=== PATIENT | female | born 1970 | race Caucasian/White ===

== ENCOUNTER → 2016-05-29 16:16 | Outpatient (CLI) | payer MEDICAID | END | disposition home or self-care (01) | LOC: D.MRI 16:16 | DX: S83.221A Peripheral tear of medial meniscus, current injury, right knee, initial encounter (principal) ==

== ENCOUNTER 2016-06-14 06:15 | Day surgery (SDC) | payer MEDICAID ==
[2016-06-13 12:30] LABS: HEMATOCRIT 40.9 % (36.0-48.0); HEMOGLOBIN 13.5 g/dL (12-16); MCH 30.2 pg (26.0-34.0); MCV 91.5 fL (80.0-100.0); MEAN PLATELET VOLUME 11.7 fL (7.4-10.4); RBC 4.47 10x6/uL (4.00-5.40); RDW 12.7 % (11.5-14.5); WBC 8.3 10x3/uL (4.8-10.8)
[2016-06-13 12:42] LABS: ANION GAP 13.5 mmol/L (8-16); CALCIUM 8.9 mg/dL (8.5-10.1); CARBON DIOXIDE 25.9 mmol/L (21.0-32.0); POTASSIUM - SERUM 4.4 mmol/L (3.5-5.1)
[~2016-06-14] VITALS: Ht 172.7 cm; Wt 102.1 kg
[~2016-06-14 06:15] MED LIST: AMBIEN10 MG PO; GLUCOTROL ER2.5 MG PO; XANAX0.5 MG PO
[2016-06-14 09:39] VITALS: BP 133/86; Ht 172.7 cm; Wt 102.1 kg
[2016-06-14] MEDS ORDERED: HYDROCODONE-APA1 TAB PO (13:37)
--- NOTE | 2016-06-14 14:48 | NUR ---
1440- PT BACK TO ROOM. SUPINE WITH HOB ELEVATED. EATING ICE CHIPS. RESPONDING TO VERBAL STIMULI. PAIN /, WILL OFFER FULL LIQUIDS THEN PRESCRIBED PAIN MEDICATION. S/P IV MEDICATIONS FROM RECOVERY. VSS. WILL MONITOR. AT BEDSIDE.
--- NOTE | 2016-06-14 17:07 | NUR ---
1510- FULL LIQUIDS TOLERATED 1525- PAIN AT 8/10, MEDICATION ADMINISTERED 1540- IV D/C'D, PT TOLERATED. CATHETER INTACT 1555- DISCHARGE INSTRUCTIONS COMPLETED, PT VERBALIZES UNDERSTANDING. PAPERWORK SIGNED. 1610- PT DISCHARGED VIA WHEELCHAIR WITH AND SON.
--- NOTE | 2016-06-15 11:39 | OP ---
PATIENT NAME: CORTEZ JHA MEDICAL RECORD: [id number] :66 LOCATION:[facility] ADMISSION DATE: SURGEON: KEV VALENTIN MD DATE OF OPERATION: 06/14/2016 DATE OF OPERATION: 06/14/2016 PREOPERATIVE DIAGNOSIS: Patellofemoral syndrome of the right knee. 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 PROCEDURES: 1. Right knee arthroscopy with arthroscopic partial medial meniscectomy. 2. Abrasion chondroplasty to the medial femoral condyle. 3. Arthroscopic lateral release. 4. Autologous conditioned plasma -- PRP injection. SURGEON: Kev Valentin MD ANESTHESIA: General. INTRAOPERATIVE COMPLICATIONS: None. SUMMARY OF PATHOLOGIC FINDINGS: Consistent with preoperative diagnosis, the patient had chondromalacia of lateral facet of patella, very tight lateral retinaculum and not seen on the MRI, the patient had a peripheral tear of the medial meniscus. OPERATIVE SUMMARY IN DETAIL: After obtaining the appropriate preoperative orthopedic surgery consent, as well as anesthetic consultation, evaluation and clearance, the patient was brought to the operating room and placed on the operating table in supine position. After general laryngeal mask was administered, tourniquet was placed about the proximal aspect of the right lower extremity. Right lower extremity was then prepped and draped in routine sterile fashion. The leg was elevated and exsanguinated, tourniquet inflated to 350 mmHg. Routine inferolateral portal was established followed by superomedial portal and inferomedial portal. Diagnostic arthroscopy did reveal the above findings. Combination of meniscotome as well as the arthroscopic resector was utilized to debride the meniscus back to stable meniscal elements. Attention was then turned to the lateral release. The scope was switched to the medial side for direct visualization of the lateral retinaculum. Lateral retinaculum was then released just below the VMO all the way to the inferolateral portal. Lastly, after resection of loose chondral fragments of the lateral facet, the Arthrex PowerPick was utilized to create the abrasion chondroplasty. Having completed this, the knee was drained, the arthroscopy portals were closed in routine interrupted fashion using 4-0 Prolene and then approximately 5 cc of ACP was injected into the knee after the appropriate spin down. Having completed this, sterile dressings were applied. Tourniquet was deflated. The patient was awakened and taken to the recovery room in stable condition. All final needle and sponge counts were correct. TRANSINT:[id number] Voice Confirmation ID: [id number] DOCUMENT ID: [id number] OPERATIVE REPORT [id number] CORTEZ JHA MD, KEV IVORY at 1139 CC: [id number] DICTATION DATE: 06/14/16 1326 [facility]: 06/15/16 0103 [facility] 06/14/16 [id number] [place] [address]
== END 2016-06-14 16:10 | disposition home or self-care (01) ==
LOC: D.OPS 06:15 → D.PAN 11:45 → D.OPS 11:45 → D.PAN 12:45 → D.OPS 16:10 → D.PAN 16:45 → D.OPS 16:45
PROVIDERS: Anesthesiology
DX: S83.221A Peripheral tear of medial meniscus, current injury, right knee, initial encounter (principal); M25.562 Pain in left knee; M25.561 Pain in right knee; Z01.812 Encounter for preprocedural laboratory examination